=== PATIENT | male | born 1985 | race Caucasian/White ===

== ENCOUNTER 2019-02-07 16:07 | Emergency (ER) | payer BC ==
[~2019-02-07] VITALS: Ht 185.4 cm; Wt 109.1 kg
[2019-02-07] MEDS ORDERED: SODIUM CHLORIDE 0.9% 1,000 ML IV ONE (19:00)
[2019-02-07] MEDS ORDERED: PEN G PROCAINE/PEN G BENZ CR 1,200,000 UNITS/2 ML SYG IM ONE (19:00)
[2019-02-07] MEDS ORDERED: DEXAMETHASONE SOD PHOS 4 MG/ML 5 ML VIAL IVP ONE (19:00)
[2019-02-07] MEDS ORDERED: ACETAMINOPHEN 1000 MG/ISO-OSM 100 ML IV ONE (19:00)
[2019-02-07 20:30] VITALS: BP 152/87
== END 2019-02-07 21:24 | disposition home or self-care (01) ==
LOC: EMS 16:08
DX: J02.9 Acute pharyngitis, unspecified (principal); F12.90 Cannabis use, unspecified, uncomplicated; F17.210 Nicotine dependence, cigarettes, uncomplicated
CPT/HCPCS: 87430; 96365; 96366; 96372; 96375; 99283; J0131; J0558; J1100; J7030